=== PATIENT | male | born 1950 | race Caucasian/White ===

== ENCOUNTER → 2017-05-06 | Outpatient (CLI) | payer OTHER, MEDICARE ==
[~2017-05-06] MED LIST: AMIT25TA9 PO; AMLO10TA4 PO; AMOX-358 PO; ASPI-586 PO; DOXA2TAB2 PO; FURO40TA4 PO; FURO80TA83 PO; GABA600T2 PO; HYDR-3924 PO; INSU100V16 SQ; INSU100V5 SQ; INSU100V6 SQ; ISOS10TA8 PO; LIRA0.6P SQ; LOSA100T3 PO; METO-352 PO; MONT10TA21 PO; NITR0.4T39 SL; PRAM0.5T9 PO; RANI150T15 PO; ROSU40TA PO
--- NOTE | 2017-05-06 14:36 | Diagnostic Imaging Report ---
INDICATION: Swelling of left arm. FINDINGS: Venous Doppler sampling shows normal color flow enhancement with normal waveform from the jugular vein distally to the wrist. Compression of the forearm shows normal augmentation of flow in the antecubital region. IMPRESSION: No evidence of venous thrombosis in the left upper extremity. Dictated by: Dictated on workstation # [id number]
== END ==
LOC: RAD 14:07
PROVIDERS: ATTEND Internal Medicine Critical Care Medicine
DX: M79.89 Other specified soft tissue disorders (principal); M79.602 Pain in left arm

== ENCOUNTER → 2017-10-28 | Outpatient (CLI) | payer OTHER, MEDICARE ==
[~2017-10-28] MED LIST changes: +RT-ALBUTEROL SULF 2.5 MG/3 ML PRE-MIX VIAL IH ONE
== END ==
LOC: RT 10:26
PROVIDERS: ATTEND Internal Medicine Critical Care Medicine
DX: R06.02 Shortness of breath (principal); G47.33 Obstructive sleep apnea (adult) (pediatric)
CPT/HCPCS: 94060; 94726; 94729

== ENCOUNTER → 2020-10-07 | Outpatient (CLI) | payer OTHER, MEDICARE ==
[~2020-10-07] MED LIST changes: -GABA600T2 PO; +GBPN600T PO; +RANI-613 PO; -RANI150T15 PO; -RT-ALBUTEROL SULF 2.5 MG/3 ML PRE-MIX VIAL IH ONE
== END ==
LOC: LABNPT 08:07
PROVIDERS: ATTEND Nurse Practitioner Family
DX: Z20.828 Contact with and (suspected) exposure to other viral communicable diseases (principal)
CPT/HCPCS: 87635